=== PATIENT | male | born 1990 | race African-American/Black ===

== ENCOUNTER 2018-11-21 21:18 | Emergency (ER) | payer MEDICAID ==
[~2018-11-21] VITALS: Ht 185.4 cm; Wt 77.3 kg
--- NOTE | 2018-11-21 21:44 | NUR ---
ATTEMPTED TO ASSESS PATIENT AND COMPLETE MED HX, PT REFUSING TO ANSWER QUESTIONS, ALL PATIENT WOULD SAY IS "I STARTED FEELING BAD ABOUT AN HOUR AGO AFTER I ATE". PT ABLE TO FOLLOW COMMANDS, IS LAYING IN BED WITH EYES CLOSED AND APPEARS IN NO ACUTE DISTRESS. PT REFUSED TO ANSWER FOLLOW-ON QUESTIONS. Addendum: 11/21/18 at 2145 by KATELYNN NO EMESIS NOTED DURING PATIENT CONTACT.
--- NOTE | 2018-11-21 22:14 | NUR ---
SARAH HILL AT BEDSIDE WITH PT
--- NOTE | 2018-11-21 22:48 | NUR ---
PT MEDICAL HX PROVIDED BY JALYN ANGUIANO'Blake MORGAN. SHE REPORTS PT DX WITH THYROID CA IN [facility]. PT MOVED TO [place] ~ 1 month ago. NO ESTABLISHED PCP. DOES NOT APPEAR TO BE FOLLOWED BY AN ONCOLOGIST AT THIS TIME.
[2018-11-21 22:50] LABS: BASOPHILS % (AUTO) 0.2 % (0-1); EOSINOPHILS # (AUTO) 0.3 X10'3 (0-0.9); HEMATOCRIT 37.2 % (42.0-52.0); HEMOGLOBIN 12.5 g/dl (14.0-17.9); LYMPHOCYTES # (AUTO) 1.9 X10'3 (1.1-4.8); LYMPHOCYTES % (AUTO) 15.1 % (21-51); MEAN CORPUSCULAR HGB CONC 33.5 % (33.0-36.5); MEAN CORPUSCULAR VOLUME 92.6 FL (78-98); MEAN PLATELET VOLUME 7.9 FL (7.4-10.4); MONOCYTES # (AUTO) 0.7 X10'3 (0-0.9); MONOCYTES % (AUTO) 5.4 % (2-12); NEUTROPHILS # (AUTO) 9.8 X10'3 (1.8-7.7); NEUTROPHILS % (AUTO) 77.3 % (42-75); PLATELET COUNT 218 X10'3 (140-440); RED BLOOD COUNT 4.02 X10'6 (4.70-6.10); RED CELL DISTRIBUTION WIDTH 13.4 % (11.5-14.5); WHITE BLOOD COUNT 12.7 X10'3 (4.5-11.0)
[2018-11-21 23:05] LABS: ALANINE AMINOTRANSFERASE 29 U/L (12-78); ALBUMIN 3.4 G/DL (3.4-5.0); ALKALINE PHOSPHATASE 53 IU/L (46-116); ANION GAP 8 (8-16); ASPARTATE AMINO TRANSFERASE 17 U/L (10-37); BILIRUBIN,TOTAL 0.2 MG/DL (0.1-1.0); BLOOD UREA NITROGEN 10 MG/DL (7-18); BUN/CREATININE RATIO 9.4 (5.4-32.0); CALCIUM 8.4 MG/DL (8.5-10.1); CHLORIDE 105 MMOL/L (99-107); CREATININE 1.06 MG/DL (0.60-1.10); GLUCOSE 140 MG/DL (70-104); POTASSIUM 4.6 MMOL/L (3.5-5.1); SODIUM 142 MMOL/L (135-145); TOTAL CARBON DIOXIDE 28.6 MMOL/L (24-32); TOTAL PROTEIN 6.7 G/DL (6.4-8.2); eGFR 83 ML/MIN
[2018-11-21] MEDS ORDERED: ONDA4TAB6 PO (23:07)
[2018-11-21 23:23] VITALS: BP 101/62
== END 2018-11-21 23:24 | disposition home or self-care (01) ==
LOC: ER 21:19
DX: R11.2 Nausea with vomiting, unspecified (principal); F12.90 Cannabis use, unspecified, uncomplicated; R10.9 Unspecified abdominal pain; Z86.69 Personal history of other diseases of the nervous system and sense organs; Z79.899 Other long term (current) drug therapy
CPT/HCPCS: 36415; 80053; 85025; 99283